=== PATIENT | male | born 1940 | race Caucasian/White ===

== ENCOUNTER 2017-09-01 22:52 | Inpatient (IN) | payer MEDICARE ==
[~2017-09-01] VITALS: Ht 182.9 cm; Wt 87.5 kg
[2017-09-01 23:23] LABS: BASOPHILS % (AUTO) 0.6 % (0.0-5.0); HEMATOCRIT 43.3 % (42-54); LYMPHOCYTES % (AUTO) 15.4 % (21.0-51.0); MEAN CORPUSCULAR HEMOGLOBIN 32.5 pg (27.0-33.0); MEAN CORPUSCULAR HGB CONC 34.7 g/dL (32.0-36.0); MEAN CORPUSCULAR VOLUME 93.7 fL (79-99); MONOCYTES % (AUTO) 13.6 % (3.0-13.0); NEUTROPHILS % (AUTO) 69.4 % (40.0-77.0); PLATELET COUNT (AUTO) 245 K/uL (130-400); RED BLOOD CELL COUNT(AUTO) 4.62 MIL/uL (4.50-6.20); RED CELL DISTRIBUTION WIDTH 13.6 % (11.0-15.5); WHITE BLOOD COUNT (AUTO) 7.6 K/uL (4.8-10.8)
[2017-09-01 23:29] LABS: CREATININE 2.8 mg/dL (0.5-1.5); POTASSIUM 4.3 mmol/L (3.5-5.1)
[2017-09-01 23:32] LABS: ALBUMIN 3.6 g/dL (3.5-5.0); BILIRUBIN,TOTAL 0.9 mg/dL (0.2-1.0); TOTAL PROTEIN, SERUM 7.7 g/dL (6.0-8.3)
[2017-09-01 23:35] LABS: INR 3.29 (0.85-1.15); PROTHROMBIN TIME 32.8 SEC (9.6-11.6)
[2017-09-01 23:36] LABS: PARTIAL THROMBOPLASTIN TIME 39.4 SEC (26.3-35.5)
[2017-09-01] MEDS ORDERED: METHYLPREDNISOLONE SOD SUCC 125MG/2ML VIAL ONE (23:45)
[2017-09-01] MEDS ORDERED: IPRATROPIUM/ALBUTEROL SULFATE 3 ML SOLUTION IH ONE (23:51)
[2017-09-02] MEDS ORDERED: IPRATROPIUM/ALBUTEROL SULFATE 3 ML SOLUTION IH ONE ×2 (00:43→05:43)
[2017-09-02] MEDS ORDERED: AZITHROMYCIN 500MG+NS 250ML 250 ML IV ONE (01:34)
[2017-09-02] MEDS ORDERED: FUROSEMIDE 10 MG/ML 4ML VIAL ONE (01:34)
[2017-09-02] MEDS ORDERED: CEFTRIAXONE SODIUM 1 GM ONE (01:35)
[2017-09-02] MEDS ORDERED: POTASSIUM CHLORIDE 20 MEQ ERTAB PO PRN (02:15)
[2017-09-02] MEDS ORDERED: ACETAMINOPHEN 325 MG TAB PO PRN (02:15)
[2017-09-02] MEDS ORDERED: POTASSIUM CHLORIDE 10% ELIXIR 20 MEQ/15 ML UDCUP PO PRN (02:15)
[2017-09-02] MEDS ORDERED: ONDANSETRON HCL MDV 20ML 2 MG/ML VIAL IVP PRN (02:15)
[2017-09-02] MEDS ORDERED: LIDOCAINE HCL-MPF 1% 2ML VIAL IVP PRN (02:15)
[2017-09-02] MEDS ORDERED: POTASSIUM CHLORIDE 20MEQ/100ML 100 ML IV PRN (02:15)
[2017-09-02] MEDS ORDERED: FAMOTIDINE 20MG TAB 20 MG TAB PO SCH (03:15)
[2017-09-02] MEDS: IPRATROPIUM/ALBUTEROL SULFATE 3 ML SOLUTION IH SCH ×3 (05:44→18:39)
[2017-09-02] MEDS ORDERED: PHYTONADIONE 10 MG/1 ML AMP SQ SCH (06:00)
[2017-09-02] MEDS ORDERED: PHYTONADIONE 10 MG/1 ML AMP ONE (06:05)
[2017-09-02] MEDS ORDERED: FAMOTIDINE 20MG TAB 20 MG TAB ONE (06:05)
[2017-09-02 08:01] LABS: BASOPHILS % (AUTO) 0.2 % (0.0-5.0); EOSINOPHILS % (AUTO) 0.1 % (0.0-8.0); HEMATOCRIT 40.7 % (42-54); LYMPHOCYTES % (AUTO) 7.6 % (21.0-51.0); MEAN CORPUSCULAR HEMOGLOBIN 32.2 pg (27.0-33.0); MEAN CORPUSCULAR HGB CONC 34.5 g/dL (32.0-36.0); MEAN CORPUSCULAR VOLUME 93.6 fL (79-99); MONOCYTES % (AUTO) 3.1 % (3.0-13.0); PLATELET COUNT (AUTO) 204 K/uL (130-400); RED BLOOD CELL COUNT(AUTO) 4.35 MIL/uL (4.50-6.20); WHITE BLOOD COUNT (AUTO) 4.4 K/uL (4.8-10.8)
[2017-09-02 08:10] LABS: CREATININE 2.6 mg/dL (0.5-1.5); POTASSIUM 4.3 mmol/L (3.5-5.1)
[2017-09-02 08:37] LABS: B-TYPE NATRIURETIC PEPTIDE 1160 pg/mL (0-100)
[2017-09-02 08:53] LABS: INR 3.54 (0.85-1.15); PROTHROMBIN TIME 35.1 SEC (9.6-11.6)
[2017-09-02] MEDS ORDERED: METOLAZONE 2.5 MG TABLET PO SCH (09:30)
[2017-09-02] MEDS ORDERED: METOLAZONE 2.5 MG TABLET ONE (10:06)
[2017-09-02 10:12] LABS: APPEARANCE,URINE Clear (CLEAR); BILIRUBIN,URINE Negative (NEGATIVE); COLOR,URINE Yellow (YELLOW); GLUCOSE, URINE (UA) Negative (NEGATIVE); KETONES,URINE Negative (NEGATIVE); LEUKOCYTE ESTERASE ,URINE Small (NEGATIVE); NITRATE,URINE Negative (NEGATIVE); OCCULT BLOOD,URINE Negative (NEGATIVE); PROTEIN,URINE Negative (NEGATIVE)
[2017-09-02 10:26] LABS: BACTERIA,URINE Rare /HPF (None Seen); RBC,URINE 0-1 /HPF (0-1); SQUAMOUS EPITHELIAL CELL,UR Rare /HPF (0-2)
[2017-09-02 11:00] VITALS: BP 114/70
[2017-09-02] MEDS ORDERED: FLUT1AER IH (11:38)
[2017-09-02] MEDS ORDERED: SPIR25TA6 PO (11:38)
[2017-09-02] MEDS ORDERED: CARV3.12 PO (11:38)
[2017-09-02] MEDS ORDERED: FURO80TA3 PO (11:38)
[2017-09-02] MEDS ORDERED: PRAV40TA3 PO (11:38)
[2017-09-02] MEDS ORDERED: AMIO100T4 PO (11:38)
[2017-09-02] MEDS ORDERED: WARF-57 PO (11:38)
[2017-09-02] MEDS ORDERED: RANI150T7 PO (11:38)
[2017-09-02] MEDS ORDERED: LEVO200T10 PO (11:38)
[2017-09-02] MEDS: FUROSEMIDE 10 MG/ML 4ML VIAL IV SCH ×2 (12:58→23:51)
[2017-09-02 16:00] VITALS: BP 104/61
[2017-09-02] MEDS: ALBUTEROL SULFATE 0.083% 2.5 MG/3 ML INH IH SCH (18:00)
[2017-09-02] MEDS: BUDESONIDE 0.5 MG/2 ML INH IH SCH (18:46)
[2017-09-02 19:36] VITALS: BP 103/54
[2017-09-02] MEDS: CARVEDILOL 3.125 MG TABLET PO SCH (21:06)
[2017-09-02] MEDS: AMIODARONE HCL 200 MG TABLET PO SCH (21:06)
[2017-09-02 23:44] VITALS: BP 104/61
[2017-09-03] MEDS: ALBUTEROL SULFATE 0.083% 2.5 MG/3 ML INH IH SCH
[2017-09-03] MEDS: IPRATROPIUM/ALBUTEROL SULFATE 3 ML SOLUTION IH SCH ×4 (00:13→18:57)
[2017-09-03 04:04] LABS: HEMATOCRIT 40.1 % (42-54); MEAN CORPUSCULAR HEMOGLOBIN 32.9 pg (27.0-33.0); MEAN CORPUSCULAR HGB CONC 35.3 g/dL (32.0-36.0); MEAN CORPUSCULAR VOLUME 93.3 fL (79-99); PLATELET COUNT (AUTO) 257 K/uL (130-400); RED CELL DISTRIBUTION WIDTH 13.8 % (11.0-15.5); WHITE BLOOD COUNT (AUTO) 7.9 K/uL (4.8-10.8)
[2017-09-03 04:12] LABS: INR 2.73 (0.85-1.15); PROTHROMBIN TIME 27.3 SEC (9.6-11.6)
[2017-09-03 04:16] VITALS: BP 101/67
[2017-09-03 04:16] LABS: CREATININE 2.6 mg/dL (0.5-1.5); MAGNESIUM 2.4 mg/dL (1.80-2.40); POTASSIUM 4.1 mmol/L (3.5-5.1)
[2017-09-03 04:26] LABS: BAND NEUTROPHILS % (MANUAL) 5 % (0-2); BASOPHILS % (MANUAL) 1 % (0-2); EOSINOPHILS % (MANUAL) 1 % (1-6); LYMPHOCYTES % (MANUAL) 10 % (22-44); MONOCYTES % (MANUAL) 3 % (2-9); SEGMENTED NEUTROPHILS % 80 % (40-70)
[2017-09-03 04:27] LABS: MAN.DIFF COMMENT-IMPRESSION MANUAL DIFFERENTIAL; PLATELET MORPHOLOGY COMMENT ADEQUATE
[2017-09-03] MEDS: BUDESONIDE 0.5 MG/2 ML INH IH SCH ×2 (06:31→18:57)
[2017-09-03 07:49] VITALS: BP 107/70
[2017-09-03] MEDS ORDERED: WARFARIN SODIUM 2 MG TAB PO SCH (09:00)
[2017-09-03] MEDS: **HM** PRAVASTATIN 40MG PO SCH (09:00)
[2017-09-03] MEDS ORDERED: CEFTRIAXONE 1GM/D5W 50ML 50 ML IV SCH (09:00)
[2017-09-03] MEDS: LEVOTHYROXINE 100 MCG TABLET PO SCH (09:48)
[2017-09-03] MEDS: SPIRONOLACTONE 25 MG TAB PO SCH (09:48)
[2017-09-03] MEDS: CEFTRIAXONE SODIUM 1 GM IVP SCH (09:49)
[2017-09-03] MEDS: AMIODARONE HCL 200 MG TABLET PO SCH ×2 (09:49→21:16)
[2017-09-03] MEDS: CARVEDILOL 3.125 MG TABLET PO SCH ×2 (09:49→21:17)
[2017-09-03] MEDS: AZITHROMYCIN 500MG+NS 250ML 250 ML IV SCH (09:50)
[2017-09-03] MEDS: FUROSEMIDE 10 MG/ML 4ML VIAL IV SCH (09:51)
[2017-09-03 11:23] VITALS: BP 121/73
[2017-09-03] MEDS ORDERED: WARFARIN SODIUM 1 MG TAB PO SCH (16:00)
[2017-09-03 16:12] VITALS: BP 105/70
[2017-09-03 19:54] VITALS: BP 112/64
[2017-09-03 23:37] VITALS: BP 100/63
[2017-09-04] MEDS: IPRATROPIUM/ALBUTEROL SULFATE 3 ML SOLUTION IH SCH ×3 (00:35→11:50)
[2017-09-04 04:34] VITALS: BP 108/58
[2017-09-04 04:34] LABS: BASOPHILS % (AUTO) 0.3 % (0.0-5.0); EOSINOPHILS % (AUTO) 0.8 % (0.0-8.0); HEMATOCRIT 40.6 % (42-54); LYMPHOCYTES % (AUTO) 13.5 % (21.0-51.0); MEAN CORPUSCULAR HEMOGLOBIN 32.3 pg (27.0-33.0); MEAN CORPUSCULAR HGB CONC 34.5 g/dL (32.0-36.0); MEAN CORPUSCULAR VOLUME 93.7 fL (79-99); MONOCYTES % (AUTO) 10.1 % (3.0-13.0); NEUTROPHILS % (AUTO) 75.3 % (40.0-77.0); PLATELET COUNT (AUTO) 238 K/uL (130-400); RED BLOOD CELL COUNT(AUTO) 4.33 MIL/uL (4.50-6.20); WHITE BLOOD COUNT (AUTO) 7.2 K/uL (4.8-10.8)
[2017-09-04 04:49] LABS: CREATININE 2.6 mg/dL (0.5-1.5); POTASSIUM 3.8 mmol/L (3.5-5.1)
[2017-09-04] MEDS: ALBUTEROL SULFATE 0.083% 2.5 MG/3 ML INH IH SCH ×3 (06:00→11:50)
[2017-09-04] MEDS: BUDESONIDE 0.5 MG/2 ML INH IH SCH (06:20)
[2017-09-04 07:00] VITALS: BP 111/66
[2017-09-04] MEDS: CEFTRIAXONE SODIUM 1 GM IVP SCH (08:51)
[2017-09-04] MEDS: FUROSEMIDE 10 MG/ML 4ML VIAL IV SCH (08:51)
[2017-09-04] MEDS: LEVOTHYROXINE 100 MCG TABLET PO SCH (08:51)
[2017-09-04] MEDS: AMIODARONE HCL 200 MG TABLET PO SCH (08:51)
[2017-09-04] MEDS: CARVEDILOL 3.125 MG TABLET PO SCH (08:52)
[2017-09-04] MEDS: SPIRONOLACTONE 25 MG TAB PO SCH (08:52)
[2017-09-04] MEDS: AZITHROMYCIN 500MG+NS 250ML 250 ML IV SCH (08:54)
[2017-09-04] MEDS: **HM** PRAVASTATIN 40MG PO SCH (08:55)
[2017-09-04] MEDS ORDERED: WARFARIN SODIUM 2.5 MG TAB PO SCH (09:00)
[2017-09-04 11:00] VITALS: BP 95/58
[2017-09-04] MEDS ORDERED: WARF2.5T47 PO (12:13)
[2017-09-04] MEDS ORDERED: CEPH500B PO (12:13)
[2017-09-04] MEDS ORDERED: FURO40TA7 PO (12:13)
[2017-09-04] MEDS ORDERED: AZIT250T9 PO (12:13)
[2017-09-04] MEDS ORDERED: FUROSEMIDE 40 MG TABLET PO SCH (17:00)
== END 2017-09-04 13:10 | disposition home or self-care (01) | DRG 291 ==
LOC: EDH 22:52 → EDHIP 09-02 01:13 → 2BH 09-02 11:04 → 2AH 09-02 17:24
PROVIDERS: ADMIT Family Medicine; ATTEND Family Medicine
DX: I13.0 Hypertensive heart and chronic kidney disease with heart failure and stage 1 through stage 4 chronic kidney disease, or unspecified chronic kidney disease (principal); I50.23 Acute on chronic systolic (congestive) heart failure; N17.9 Acute kidney failure, unspecified; N18.4 Chronic kidney disease, stage 4 (severe); I25.5 Ischemic cardiomyopathy; J44.0 Chronic obstructive pulmonary disease with (acute) lower respiratory infection; I48.0 Paroxysmal atrial fibrillation; Z79.01 Long term (current) use of anticoagulants; I25.10 Atherosclerotic heart disease of native coronary artery without angina pectoris; J44.1 Chronic obstructive pulmonary disease with (acute) exacerbation; B97.89 Other viral agents as the cause of diseases classified elsewhere; E03.9 Hypothyroidism, unspecified; E78.5 Hyperlipidemia, unspecified; I25.2 Old myocardial infarction; I48.2 Chronic atrial fibrillation; J20.9 Acute bronchitis, unspecified; R79.1 Abnormal coagulation profile; Z86.79 Personal history of other diseases of the circulatory system; Z87.891 Personal history of nicotine dependence; Z95.1 Presence of aortocoronary bypass graft; Z95.810 Presence of automatic (implantable) cardiac defibrillator; Z88.8 Allergy status to other drugs, medicaments and biological substances; Z84.89 Family history of other specified conditions
CPT/HCPCS: 36415; 71045; 76770; 80048; 80053; 81001; 82550; 83735; 83880; 84484; 85025; 85610; 85730; 87040; 87633; 93005; 93306; 94640; 94664; 99291; A4218; J0456; J0696; J1940; J2930; J3430

== ENCOUNTER 2018-07-31 08:59 | Emergency (ER) | payer MEDICARE ==
[~2018-07-31 08:59] MED LIST: AMIO100T4 PO; AZIT250T9 PO; CARV3.12 PO; CEPH500B PO; FLUT1AER IH; FURO40TA7 PO; LEVO200T10 PO; PRAV40TA3 PO; RANI150T7 PO; SPIR25TA6 PO; WARF2.5T47 PO
[2018-07-31 10:02] LABS: APPEARANCE,URINE Clear (CLEAR); BILIRUBIN,URINE Negative (NEGATIVE); COLOR,URINE Yellow (YELLOW); GLUCOSE, URINE (UA) Negative (NEGATIVE); KETONES,URINE Negative (NEGATIVE); LEUKOCYTE ESTERASE ,URINE Small (NEGATIVE); NITRATE,URINE Negative (NEGATIVE); OCCULT BLOOD,URINE Negative (NEGATIVE); PROTEIN,URINE Negative (NEGATIVE)
[2018-07-31] MEDS ORDERED: ONDANSETRON HCL 4 MG/2 ML VIAL ONE (10:06)
[2018-07-31] MEDS ORDERED: MORPHINE SULFATE 4 MG/1ML SYG ONE (10:07)
[2018-07-31 10:49] LABS: BASOPHILS % (AUTO) 0.8 % (0.0-5.0); EOSINOPHILS % (AUTO) 3.6 % (0.0-8.0); HEMATOCRIT 39.6 % (42-54); LYMPHOCYTES % (AUTO) 18.3 % (21.0-51.0); MEAN CORPUSCULAR HEMOGLOBIN 33.2 pg (27.0-33.0); MEAN CORPUSCULAR HGB CONC 34.4 g/dL (32.0-36.0); MEAN CORPUSCULAR VOLUME 96.4 fL (79-99); MONOCYTES % (AUTO) 10.7 % (3.0-13.0); NEUTROPHILS % (AUTO) 66.6 % (40.0-77.0); NUCLEATED RED BLOOD CELLS 0.1 % (0.0-0.19); PLATELET COUNT (AUTO) 157 K/uL (130-400); RED BLOOD CELL COUNT(AUTO) 4.11 MIL/uL (4.50-6.20); RED CELL DISTRIBUTION WIDTH 13.5 % (11.0-15.5); WHITE BLOOD COUNT (AUTO) 5.1 K/uL (4.8-10.8)
[2018-07-31 11:00] LABS: POTASSIUM 4.1 mmol/L (3.5-5.1)
[2018-07-31 11:05] LABS: ALBUMIN 3.3 g/dL (3.5-5.0); BILIRUBIN,TOTAL 0.6 mg/dL (0.2-1.0); TOTAL PROTEIN, SERUM 6.4 g/dL (6.0-8.3)
[2018-07-31 11:09] LABS: BACTERIA,URINE Few /HPF (None Seen); SQUAMOUS EPITHELIAL CELL,UR 0-2 /HPF (0-2)
[2018-07-31 11:10] LABS: RBC,URINE 0-1 /HPF (0-1)
[2018-07-31] MEDS ORDERED: MORPHINE SULFATE 5 MG/ML VIAL ONE (11:38)
== END 2018-07-31 13:14 | disposition home or self-care (01) ==
LOC: EDH 08:59
DX: N18.9 Chronic kidney disease, unspecified (principal); N28.1 Cyst of kidney, acquired; I48.91 Unspecified atrial fibrillation; E07.9 Disorder of thyroid, unspecified; E78.5 Hyperlipidemia, unspecified; Z95.1 Presence of aortocoronary bypass graft
CPT/HCPCS: 36415; 74176; 76705; 80053; 81001; 85025; 96374; 96375; 96376; 99285; J2270 ×2; J2405

== ENCOUNTER → 2019-06-13 | Outpatient (CLI) | payer MEDICARE | END | disposition home or self-care (01) | LOC: OIH 14:54 | PROVIDERS: ATTEND Internal Medicine | DX: M54.5 Low back pain (principal) | CPT/HCPCS: 72100 ==

== ENCOUNTER → 2019-06-21 | Outpatient (CLI) | payer MEDICARE | END | disposition home or self-care (01) | LOC: RAH 12:51 | PROVIDERS: ATTEND Internal Medicine | DX: J43.8 Other emphysema (principal); J98.11 Atelectasis; K76.89 Other specified diseases of liver; N28.1 Cyst of kidney, acquired; K57.90 Diverticulosis of intestine, part unspecified, without perforation or abscess without bleeding; K80.20 Calculus of gallbladder without cholecystitis without obstruction; I70.0 Atherosclerosis of aorta | CPT/HCPCS: 74176 ==

== ENCOUNTER 2019-08-14 23:39 | Inpatient (IN) | payer MEDICARE ==
[~2019-08-14] VITALS: Ht 182.9 cm; Wt 73.5 kg
[~2019-08-14 23:39] MED LIST changes: +WARF2.5T PO; -WARF2.5T47 PO
[2019-08-15 00:27] LABS: BASOPHILS % (AUTO) 0.3 % (0.0-5.0); EOSINOPHILS % (AUTO) 1.2 % (0.0-8.0); HEMATOCRIT 46.5 % (42-54); LYMPHOCYTES % (AUTO) 8.3 % (21.0-51.0); MEAN CORPUSCULAR HEMOGLOBIN 28.2 pg (27.0-33.0); MEAN CORPUSCULAR HGB CONC 32.5 g/dL (32.0-36.0); MEAN CORPUSCULAR VOLUME 86.9 fL (79-99); MONOCYTES % (AUTO) 10.5 % (3.0-13.0); NEUTROPHILS % (AUTO) 79.4 % (40.0-77.0); PLATELET COUNT (AUTO) 168 K/uL (130-400); RED BLOOD CELL COUNT(AUTO) 5.35 MIL/uL (4.50-6.20); RED CELL DISTRIBUTION WIDTH 17.9 % (11.0-15.5); WHITE BLOOD COUNT (AUTO) 7.6 K/uL (4.8-10.8)
[2019-08-15 00:45] LABS: CREATININE 2.8 mg/dL (0.5-1.5); INR 1.05 (0.85-1.15); PARTIAL THROMBOPLASTIN TIME 26.1 SEC (26.3-35.5); POTASSIUM 4.1 mmol/L (3.5-5.1); PROTHROMBIN TIME 11.3 SEC (9.6-11.6)
[2019-08-15 00:49] LABS: ALBUMIN 4.8 g/dL (3.5-5.0); BILIRUBIN,TOTAL 1.3 mg/dL (0.2-1.0); TOTAL PROTEIN, SERUM 8.5 g/dL (6.0-8.3)
[2019-08-15] MEDS ORDERED: ONDANSETRON HCL 4 MG/2 ML VIAL ONE (01:19)
[2019-08-15] MEDS ORDERED: MORPHINE SULFATE 4 MG/1ML SYG ONE (01:20)
[2019-08-15] MEDS ORDERED: SODIUM CHLORIDE 0.9% 1000ML 1,000 ML IV ONE (01:21)
[2019-08-15] MEDS ORDERED: DEXTROSE 5 %-0.45 % NACL 1,000 ML IV ONE (03:30)
--- NOTE | 2019-08-15 08:10 | NUR ---
ER ADMIT PATIENT RECEIVED FROM ER VIA STRETCHER IN STABLE CONDITION. DR. FANG IN TO SEE PATIENT. NEW ORDERS RECEIVED AND CARRIED OUT. PATIENT HAS BEEN ORIENTED TO ROOM AND USE OF CALL LIGHT. NGT TO RIGHT NARES IS INTACT AND CLAMPED. ABDOMEN IS SOFT AND SLIGHTLY DISTENDED. PATIENT REPORTS PASSING GAS. BOWEL SOUNDS ARE ACTIVE. BED IS IN LOWEST POSITION AND LOCKED WITH PERSONAL ITEMS WITHIN REACH. WILL CONTINUE TO MONITOR.
[2019-08-15 08:21] VITALS: BP 118/65
--- NOTE | 2019-08-15 09:08 | NUR ---
STATUS NOTIFIED DR. FANG OF ADMISSION CRITERIA. STATES TO ASK DR. LYLES FOR INPATIENT ORDERS. LEFT MESSAGE WITH DR. LYLES. PENDING RESPONSE. CM TO CONTINUE TO FOLLOW. CD
[2019-08-15] MEDS ORDERED: CEFTRIAXONE SODIUM 1 GM IVP ONE (09:36)
[2019-08-15] MEDS: CEFTRIAXONE SODIUM 1 GM IV SCH (09:36)
[2019-08-15] MEDS: MORPHINE SULFATE 2 MG/ML 1ML SYG IVP PRN ×2 (09:37→19:55)
[2019-08-15] MEDS: DEXTROSE 5 %-0.45 % NACL 1,000 ML IV SCH (09:41)
[2019-08-15 11:36] VITALS: BP 120/66
[2019-08-15] MEDS: ONDANSETRON HCL 4 MG/2 ML VIAL IVP PRN ×2 (11:45→20:06)
--- NOTE | 2019-08-15 11:59 | NUR ---
INITIAL CM NOTE MET WITH PATIENT & SPOUSE MOISÉS AT BEDSIDE FOR D/C PLANNING JOSEY JAY, INDEPENDENT, NO DME, DRIVES- HISTORY OF SBO AND COLON RESECTION IN THE PAST. CURRENTLY NPO. DCP PLAN IS HOME Addendum: 08/15/19 at 1202 by ELDER URENA RN CM Amended: Links added.
[2019-08-15] MEDS: METRONIDAZOLE 500MG/100ML BAG 100 ML IV SCH ×2 (14:00→22:26)
[2019-08-15 17:00] VITALS: BP 111/61
--- NOTE | 2019-08-15 17:25 | NUR ---
[id number] patient signed IM Letter, I faxed IM Letter to [phone] and placed in chart under consent tab
[2019-08-15 19:25] VITALS: BP 104/61
[2019-08-15] MEDS ORDERED: TORS20TA4 PO (20:01)
[2019-08-15] MEDS ORDERED: BISO5TAB19 PO (20:01)
[2019-08-15] MEDS ORDERED: CLOP75TA32 PO (20:01)
[2019-08-15] MEDS ORDERED: LISI2.5T2 PO (20:01)
[2019-08-15] MEDS ORDERED: AEC81 PO (20:01)
[2019-08-15] MEDS ORDERED: AMIO200T44 PO (20:01)
[2019-08-15 23:46] VITALS: BP 102/56
[2019-08-16] MEDS: DEXTROSE 5 %-0.45 % NACL 1,000 ML IV SCH (00:45)
[2019-08-16 03:52] VITALS: BP 101/58
[2019-08-16 05:03] LABS: HEMATOCRIT 47.6 % (42-54); MEAN CORPUSCULAR HEMOGLOBIN 28.3 pg (27.0-33.0); MEAN CORPUSCULAR HGB CONC 32.1 g/dL (32.0-36.0); MEAN CORPUSCULAR VOLUME 88.1 fL (79-99); PLATELET COUNT (AUTO) 152 K/uL (130-400); RED CELL DISTRIBUTION WIDTH 17.5 % (11.0-15.5); WHITE BLOOD COUNT (AUTO) 6.7 K/uL (4.8-10.8)
[2019-08-16 05:13] LABS: BAND NEUTROPHILS % (MANUAL) 2 % (0-2); LYMPHOCYTES % (MANUAL) 16 % (22-44); MAN.DIFF COMMENT-IMPRESSION MANUAL DIFFERENTIAL; MONOCYTES % (MANUAL) 10 % (2-9); PLATELET MORPHOLOGY COMMENT ADEQUATE; SEGMENTED NEUTROPHILS % 72 % (40-70)
[2019-08-16 05:14] LABS: CREATININE 2.4 mg/dL (0.5-1.5); POTASSIUM 3.9 mmol/L (3.5-5.1)
[2019-08-16] MEDS: METRONIDAZOLE 500MG/100ML BAG 100 ML IV SCH ×3 (06:21→20:41)
[2019-08-16] MEDS ORDERED: AUD IH (06:51)
[2019-08-16 08:00] VITALS: BP 114/64
[2019-08-16] MEDS: BISOPROLOL FUMARATE 2.5 MG PO SCH ×2 (09:00→20:48)
[2019-08-16] MEDS: ASPIRIN 81 MG EC TAB PO SCH (09:42)
[2019-08-16] MEDS: LISINOPRIL 2.5 MG TABLET PO SCH (09:42)
[2019-08-16] MEDS: SPIRONOLACTONE 25 MG TAB PO SCH (09:42)
[2019-08-16] MEDS: CLOPIDOGREL BISULFATE 75 MG TAB PO SCH (09:42)
[2019-08-16] MEDS: TORSEMIDE 20 MG TAB PO SCH (09:42)
[2019-08-16] MEDS: AMIODARONE HCL 200 MG TABLET PO SCH (09:43)
[2019-08-16] MEDS: MORPHINE SULFATE 2 MG/ML 1ML SYG IVP PRN ×2 (09:44→20:40)
[2019-08-16] MEDS: CEFTRIAXONE SODIUM 1 GM IV SCH (09:44)
[2019-08-16] MEDS ORDERED: CEFTRIAXONE SODIUM 1 GM IVP ONE (09:44)
--- NOTE | 2019-08-16 10:17 | NUR ---
VOMITING DARK GREEN EMESIS, CARMELO GRANGER NOTIFIED, COMFORT PROVIDED, NOTED THAT DR. LYLES ORDKARLEE STATES' ADVANCE DIET IF OK WITH SURGEON'' NO SURGICAL CONSULT IN SYSTEM, CONSULT PLACED AND YOGESH FOR DR. HUMMEL ADVISED CONTACTED DR. LYLES TO LET HIM KNOW OF UPDATES REQUEST FOR KUB NOW? NO RESPONSE
[2019-08-16 11:00] VITALS: BP 112/61
[2019-08-16] MEDS: ALBUTEROL SULFATE 0.083% 2.5 MG/3 ML INH IH PRN ×2 (11:14→18:20)
[2019-08-16 16:00] VITALS: BP 101/54
[2019-08-16 20:36] VITALS: BP 98/72
[2019-08-16] MEDS: ONDANSETRON HCL 4 MG/2 ML VIAL IVP PRN (20:40)
[2019-08-16] MEDS: SIMVASTATIN 20 MG TABLET PO SCH ×2 (20:41→20:48)
[2019-08-16 23:09] VITALS: BP 116/67
[2019-08-17 03:00] VITALS: BP 101/60
[2019-08-17 04:56] LABS: HEMATOCRIT 43.9 % (42-54); MEAN CORPUSCULAR HEMOGLOBIN 28.8 pg (27.0-33.0); MEAN CORPUSCULAR HGB CONC 32.6 g/dL (32.0-36.0); MEAN CORPUSCULAR VOLUME 88.5 fL (79-99); PLATELET COUNT (AUTO) 151 K/uL (130-400); RED BLOOD CELL COUNT(AUTO) 4.96 MIL/uL (4.50-6.20); RED CELL DISTRIBUTION WIDTH 17.4 % (11.0-15.5); WHITE BLOOD COUNT (AUTO) 5.7 K/uL (4.8-10.8)
[2019-08-17 05:22] LABS: CREATININE 2.9 mg/dL (0.5-1.5); POTASSIUM 3.8 mmol/L (3.5-5.1)
[2019-08-17] MEDS: ALBUTEROL SULFATE 0.083% 2.5 MG/3 ML INH IH PRN ×2 (06:11→19:01)
[2019-08-17] MEDS: LEVOTHYROXINE 100 MCG TABLET PO SCH (06:45)
[2019-08-17] MEDS: METRONIDAZOLE 500MG/100ML BAG 100 ML IV SCH ×3 (06:45→21:22)
[2019-08-17] MEDS: DEXTROSE 5 %-0.45 % NACL 1,000 ML IV SCH ×2 (06:46→16:45)
[2019-08-17] MEDS: ONDANSETRON HCL 4 MG/2 ML VIAL IVP PRN ×2 (07:39→21:22)
[2019-08-17] MEDS: MORPHINE SULFATE 2 MG/ML 1ML SYG IVP PRN ×2 (07:39→21:22)
[2019-08-17 08:00] VITALS: BP 87/51
[2019-08-17] MEDS: LISINOPRIL 2.5 MG TABLET PO SCH (09:00)
[2019-08-17] MEDS: ASPIRIN 81 MG EC TAB PO SCH (09:00)
[2019-08-17] MEDS: BISOPROLOL FUMARATE 2.5 MG PO SCH ×2 (09:00→21:00)
[2019-08-17] MEDS: AMIODARONE HCL 200 MG TABLET PO SCH (09:00)
[2019-08-17] MEDS: SPIRONOLACTONE 25 MG TAB PO SCH (09:00)
[2019-08-17] MEDS: CLOPIDOGREL BISULFATE 75 MG TAB PO SCH (09:00)
[2019-08-17] MEDS: TORSEMIDE 20 MG TAB PO SCH (09:00)
[2019-08-17] MEDS: CEFTRIAXONE SODIUM 1 GM IV SCH (09:33)
[2019-08-17] MEDS ORDERED: CEFTRIAXONE SODIUM 1 GM IVP ONE (09:35)
[2019-08-17 11:00] VITALS: BP 111/61
[2019-08-17 16:00] VITALS: BP 122/71
--- NOTE | 2019-08-17 16:57 | NUR ---
STILL W NGT NGT CLMAPED AND PT UP AMBULATING EARLIER TODAY FAMILY HAD++ QUESTIONS RE BOWEL OBSTRUCTION ETC. WHEN PATIENT BACK TO SOFT DIET PRIOR TO DC, WILL PLACE DIET CONSULT FOR HX BOWL OBSTRUCTION/DIVERTICULOSIS
[2019-08-17 20:28] VITALS: BP 109/68
--- NOTE | 2019-08-17 20:52 | NUR ---
NOTE HEARD A NOISE COMING FROM ROOM AND ENTERED IT. FOUND PATIENT ON HIS KNEES OUTSIDE OF THE BATHROOM. HE WAS TAKING A SHOWER AND STATES THAT HE WAS WALKING OUT AND SLIPPED ON THE WET FLOOR. ASSISTED HIM TO THE NEARBY CHAIR. TO DRY FEET AND PLACE HIS SOCKS ON. SAYS HE IS SORE FROM THE RIGHT KNEE. NOTED A BRUISE FORMING. SLIGHT REDNESS ON LEFT KNEE. DENIES ANY PAIN. HAD THE EXTENSION TUBING FOR THE OXYGEN, BUT HE SAYS HE DID NOT TRIP ON IT. ASSISTED HIM TO THE BED. TOOK VITAL SIGNS BP 118/68, P 74, RR20. CONTACTED LUCILA JEFFRES RNPHOTOCOPYING EQUIPMENT REPAIRER AND THEN PAGED DR. LYLES TO NOTIFY OF INCIDENT.
[2019-08-17] MEDS: SIMVASTATIN 20 MG TABLET PO SCH (21:00)
--- NOTE | 2019-08-17 22:07 | NUR ---
NOTE RECEIVED CALL BACK FROM DR. LYLES. NOTIFIED OF FALL AND BRUISE ON RIGHT KNEE. LEFT KNEE WITH NO APPEARANCE INJURY AND PATIENT DENIES PAIN. ONLY SORENESS ON RIGHT KNEE. DR. LYLES SAID TO JUST OBSERVE. NO ORDERS FOR XRAYS AT THIS TIME. UPDATED Ramila JEFFERS RN OF CALL BACK FROM
[2019-08-18 00:28] VITALS: BP 115/68
[2019-08-18] MEDS: METRONIDAZOLE 500MG/100ML BAG 100 ML IV SCH ×3 (04:27→21:23)
[2019-08-18 04:28] VITALS: BP 105/68
[2019-08-18] MEDS: LEVOTHYROXINE 100 MCG TABLET PO SCH (04:50)
[2019-08-18] MEDS: ALBUTEROL SULFATE 0.083% 2.5 MG/3 ML INH IH PRN ×2 (06:59→18:38)
--- NOTE | 2019-08-18 07:12 | NUR ---
MD ROUNDS DR. LYLES HERE TO SEE PATIENT. NOTIFIED OF NGT OUTPUT OF THE NIGHT IS THE AMOUNT THAT IS ON TUBING. NO DRAINAGE GOT TO DRAINAGE CANISTER. 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 DENIES PAIN AT THIS TIME. DR. LYLES SAYS HE CAN HAVE THE NGT CLAMPED AND START ON CLEAR LIQUIDS. HAVE PATIENT WALK AND IF HE DOES NOT HAVE A BM LATER TODAY, HE CAN HAVE AND ENEMA. POINTED OUT THE BRUISE ON RIGHT KNEE FROM FALL LAST NIGHT, BUT PATIENT SAYS THAT IS JUST SORE AND DOES NOT BOTHER HIM.
[2019-08-18 07:30] VITALS: BP 111/59
[2019-08-18] MEDS: BISOPROLOL FUMARATE 2.5 MG PO SCH ×2 (09:00→19:40)
[2019-08-18] MEDS: LISINOPRIL 2.5 MG TABLET PO SCH (09:00)
[2019-08-18] MEDS ORDERED: CEFTRIAXONE SODIUM 1 GM IVP ONE (09:12)
[2019-08-18] MEDS: CEFTRIAXONE SODIUM 1 GM IV SCH (09:12)
[2019-08-18] MEDS: CLOPIDOGREL BISULFATE 75 MG TAB PO SCH (09:13)
[2019-08-18] MEDS: ASPIRIN 81 MG EC TAB PO SCH (09:13)
[2019-08-18] MEDS: SPIRONOLACTONE 25 MG TAB PO SCH (09:13)
[2019-08-18] MEDS: TORSEMIDE 20 MG TAB PO SCH (09:13)
[2019-08-18] MEDS: AMIODARONE HCL 200 MG TABLET PO SCH (09:13)
[2019-08-18] MEDS ORDERED: PHARMACY COMMUNICATION MISC SCH (09:30)
[2019-08-18 11:00] VITALS: BP 108/53
[2019-08-18] MEDS: DEXTROSE 5 %-0.45 % NACL 1,000 ML IV SCH (11:42)
[2019-08-18] MEDS: ONDANSETRON HCL 4 MG/2 ML VIAL IVP PRN ×2 (13:21→23:31)
[2019-08-18] MEDS: MORPHINE SULFATE 2 MG/ML 1ML SYG IVP PRN ×2 (13:21→23:31)
--- NOTE | 2019-08-18 13:25 | NUR ---
PATIENT VOMITED 500CC GREEN BILE, COMPLAINING OF LOWER ABDOMINAL PAIN/ NAUSEA. RECONNECTED NGT TO LOW INTERMITTENT SUCTION. PLACED BACK ON NPO STATUS. MEDICATED FOR PAIN
--- NOTE | 2019-08-18 13:30 | NUR ---
SPOKE WITH YOGESH DUBOIS REGARDING PATIENTS CHANGE OF CONDITION. MADE AWARE PATIENT C/O LOWER ABDOMINAL PAIN, EMESIS X 1 500CC GREEN BILE. MADE AWARE PATIENT PLACED BACK ON NPO, NEW ORDER STAT KUB, KEEP PATIENT ON LOW INTERMITTENT SUCTION
--- NOTE | 2019-08-18 13:34 | NUR ---
CREATININE NOTES TO BE RISING CHART REVIEWED, CRET 3.0 ON 07/31 NOW [address] LYLES - POSS INCREASE IN IVF? AWAITING RESPONSE Addendum: 08/18/19 at 1337 by ELDER URENA RN CM ERROR IN VALUES, CORRECTIONS MADE
--- NOTE | 2019-08-18 13:36 | NUR ---
CREATININE NOTED TO BE RISING- CORRECTION THIS AND PREVIOUS CHART REVIEWED, CREA 2.0 ON 07/31 NOW 2.9 ON 08/[address] LYLES - POSS INCREASE IN IVF? AWAITING RESPONSE
[2019-08-18 16:00] VITALS: BP 116/65
[2019-08-18] MEDS: SIMVASTATIN 20 MG TABLET PO SCH (19:40)
[2019-08-18 20:28] VITALS: BP 99/52
[2019-08-19] VITALS (7 sets, daily range): BP systolic 98–115; BP diastolic 54–69
[2019-08-19 04:47] LABS: HEMATOCRIT 47.1 % (42-54); MEAN CORPUSCULAR HEMOGLOBIN 29.3 pg (27.0-33.0); MEAN CORPUSCULAR HGB CONC 32.7 g/dL (32.0-36.0); MEAN CORPUSCULAR VOLUME 89.7 fL (79-99); PLATELET COUNT (AUTO) 166 K/uL (130-400); RED BLOOD CELL COUNT(AUTO) 5.25 MIL/uL (4.50-6.20); RED CELL DISTRIBUTION WIDTH 17.5 % (11.0-15.5); WHITE BLOOD COUNT (AUTO) 5.6 K/uL (4.8-10.8)
[2019-08-19 05:11] LABS: ALBUMIN 4.2 g/dL (3.5-5.0); BILIRUBIN,TOTAL 0.8 mg/dL (0.2-1.0); CREATININE 2.6 mg/dL (0.5-1.5); POTASSIUM 3.6 mmol/L (3.5-5.1)
[2019-08-19] MEDS: LEVOTHYROXINE 100 MCG TABLET PO SCH (06:30)
[2019-08-19] MEDS: METRONIDAZOLE 500MG/100ML BAG 100 ML IV SCH ×3 (06:50→21:37)
[2019-08-19] MEDS: DEXTROSE 5 %-0.45 % NACL 1,000 ML IV SCH ×2 (06:50→16:24)
[2019-08-19 07:35] LABS: INR 1.12 (0.85-1.15); PARTIAL THROMBOPLASTIN TIME 26.1 SEC (26.3-35.5)
[2019-08-19] MEDS: LISINOPRIL 2.5 MG TABLET PO SCH (09:00)
[2019-08-19] MEDS: ASPIRIN 81 MG EC TAB PO SCH (09:00)
[2019-08-19] MEDS: CLOPIDOGREL BISULFATE 75 MG TAB PO SCH (09:00)
[2019-08-19] MEDS: BISOPROLOL FUMARATE 2.5 MG PO SCH ×2 (09:00→21:00)
[2019-08-19] MEDS: SPIRONOLACTONE 25 MG TAB PO SCH (09:00)
[2019-08-19] MEDS: AMIODARONE HCL 200 MG TABLET PO SCH (09:00)
[2019-08-19] MEDS: TORSEMIDE 20 MG TAB PO SCH (09:00)
--- NOTE | 2019-08-19 11:17 | NUR ---
TPN RECOMMENDATIONS RD CONSULTED FOR TPN RECOMMENDATIONS. DX SBO AND RENAL FAILURE. PT NOT ON DIALYSIS AT THIS TIME. LABS AND MEDS REVIEWED. SKIN IS INTACT. RD RECOMMENDS TO START TPN VIA PICC USING CLINIMIX 5/15 AT 42ML/HR ADD 10ML MULTIVITAMINS DO NOT ADD INTRALIPIDS UNTIL REVIEW OF LIPID PANEL RD RECOMMENDS TO RUN LIPID PANEL FOR REVIEW MONITOR LABS AND TOLERANCE RD WILL CONTINUE TO MONITOR AND FOLLOW UP, THANK YOU. Addendum: 08/19/19 at [address] Amended: Links added.
[2019-08-19] MEDS: CEFTRIAXONE SODIUM 1 GM IV SCH (16:24)
--- NOTE | 2019-08-19 17:09 | NUR ---
FLUSHED NGT, AND IS NOW PATENT WITH AIR, GURGLING SOUND HEARD AFTER SEVERAL ATTEMPTS TO UNCLOG. NOW PATENT DRAINING.
[2019-08-19] MEDS ORDERED: M.V.I. IV [ADULT] 10 ML in CLINIMIX E 5%-15% 2,000 ML IV SCH (20:15)
[2019-08-19] MEDS: SIMVASTATIN 20 MG TABLET PO SCH (21:00)
[2019-08-19] MEDS: MORPHINE SULFATE 2 MG/ML 1ML SYG IVP PRN (23:55)
[2019-08-19] MEDS: ONDANSETRON HCL 4 MG/2 ML VIAL IVP PRN (23:55)
[2019-08-20 04:00] VITALS: BP 104/43
[2019-08-20] MEDS: MORPHINE SULFATE 2 MG/ML 1ML SYG IVP PRN (04:18)
[2019-08-20] MEDS: METRONIDAZOLE 500MG/100ML BAG 100 ML IV SCH ×3 (05:33→21:22)
[2019-08-20] MEDS: LEVOTHYROXINE 100 MCG TABLET PO SCH (05:33)
[2019-08-20 05:54] LABS: HEMATOCRIT 43.2 % (42-54); MEAN CORPUSCULAR HEMOGLOBIN 28.8 pg (27.0-33.0); MEAN CORPUSCULAR HGB CONC 32.2 g/dL (32.0-36.0); MEAN CORPUSCULAR VOLUME 89.6 fL (79-99); PLATELET COUNT (AUTO) 151 K/uL (130-400); RED BLOOD CELL COUNT(AUTO) 4.82 MIL/uL (4.50-6.20); RED CELL DISTRIBUTION WIDTH 17.2 % (11.0-15.5); WHITE BLOOD COUNT (AUTO) 4.8 K/uL (4.8-10.8)
[2019-08-20 06:19] LABS: ALBUMIN 3.6 g/dL (3.5-5.0); BILIRUBIN,TOTAL 0.6 mg/dL (0.2-1.0); CREATININE 2.1 mg/dL (0.5-1.5); POTASSIUM 3.5 mmol/L (3.5-5.1); TOTAL PROTEIN, SERUM 7.2 g/dL (6.0-8.3)
[2019-08-20] MEDS ORDERED: POTASSIUM CHLORIDE 20 MEQ ERTAB PO PRN (06:45)
[2019-08-20] MEDS ORDERED: LIDOCAINE HCL-MPF 1% 2ML VIAL IV PRN ×2 (06:45)
[2019-08-20] MEDS ORDERED: POTASSIUM CHLORIDE 20MEQ/100ML 100 ML IV PRN (06:45)
[2019-08-20] MEDS ORDERED: POTASSIUM CHLORIDE 10% ELIXIR 20 MEQ/15 ML UDCUP PO PRN (06:45)
[2019-08-20 08:00] VITALS: BP 112/64
[2019-08-20] MEDS: ASPIRIN 81 MG EC TAB PO SCH (09:00)
[2019-08-20] MEDS: CLOPIDOGREL BISULFATE 75 MG TAB PO SCH (09:00)
[2019-08-20] MEDS: SPIRONOLACTONE 25 MG TAB PO SCH (09:00)
[2019-08-20] MEDS: LISINOPRIL 2.5 MG TABLET PO SCH (09:00)
[2019-08-20] MEDS: AMIODARONE HCL 200 MG TABLET PO SCH (09:00)
[2019-08-20] MEDS: TORSEMIDE 20 MG TAB PO SCH (09:00)
[2019-08-20] MEDS: BISOPROLOL FUMARATE 2.5 MG PO SCH ×2 (09:00→21:00)
[2019-08-20] MEDS: CEFTRIAXONE SODIUM 1 GM IV SCH (09:06)
[2019-08-20 11:00] VITALS: BP 114/56
[2019-08-20] MEDS: DEXTROSE 5 %-0.45 % NACL 1,000 ML IV SCH ×2 (12:11→15:44)
[2019-08-20] MEDS: KETOROLAC TROMETHAMINE 30MG/ML IV PRN (14:25)
[2019-08-20 16:00] VITALS: BP 113/60
--- NOTE | 2019-08-20 18:47 | NUR ---
DR. HUMMEL NOTIFIED ABOUT PT CONDITION PASSING GAS X2, BUT NO BOWEL MOVEMENT. STATES POSSIBLE SMALL BOWEL SERIES TOMORROW.
[2019-08-20 19:00] VITALS: BP 107/70
[2019-08-20] MEDS: SIMVASTATIN 20 MG TABLET PO SCH (21:00)
[2019-08-20 23:00] VITALS: BP 102/51
[2019-08-21 03:00] VITALS: BP 113/74
[2019-08-21] MEDS: METRONIDAZOLE 500MG/100ML BAG 100 ML IV SCH ×3 (05:57→21:14)
[2019-08-21] MEDS: LEVOTHYROXINE 100 MCG TABLET PO SCH (06:30)
[2019-08-21 06:37] LABS: MEAN CORPUSCULAR HEMOGLOBIN 29.5 pg (27.0-33.0); MEAN CORPUSCULAR HGB CONC 32.9 g/dL (32.0-36.0); MEAN CORPUSCULAR VOLUME 89.8 fL (79-99); PLATELET COUNT (AUTO) 163 K/uL (130-400); RED BLOOD CELL COUNT(AUTO) 5.01 MIL/uL (4.50-6.20); RED CELL DISTRIBUTION WIDTH 16.7 % (11.0-15.5); WHITE BLOOD COUNT (AUTO) 5.6 K/uL (4.8-10.8)
[2019-08-21 06:45] LABS: CREATININE 2.1 mg/dL (0.5-1.5); MAGNESIUM 2.4 mg/dL (1.80-2.40); POTASSIUM 4.5 mmol/L (3.5-5.1)
[2019-08-21] MEDS ORDERED: GLYCERIN ADULT SUPP.RECT RC PRN (06:45)
[2019-08-21 08:00] VITALS: BP 105/65
[2019-08-21] MEDS: TORSEMIDE 20 MG TAB PO SCH (09:00)
[2019-08-21] MEDS: BISOPROLOL FUMARATE 2.5 MG PO SCH ×2 (09:00→21:00)
[2019-08-21 11:00] VITALS: BP 105/66
[2019-08-21] MEDS: CEFTRIAXONE SODIUM 1 GM IV SCH (11:02)
[2019-08-21] MEDS: LISINOPRIL 2.5 MG TABLET PO SCH (11:02)
[2019-08-21] MEDS: ASPIRIN 81 MG EC TAB PO SCH (11:02)
[2019-08-21] MEDS: AMIODARONE HCL 200 MG TABLET PO SCH (11:02)
[2019-08-21] MEDS: SPIRONOLACTONE 25 MG TAB PO SCH (11:03)
[2019-08-21] MEDS: CLOPIDOGREL BISULFATE 75 MG TAB PO SCH (11:03)
[2019-08-21] MEDS: BISACODYL 10 MG SUPP.RECT RC PRN (11:11)
[2019-08-21] MEDS: KETOROLAC TROMETHAMINE 30MG/ML IV PRN ×2 (11:12→22:00)
[2019-08-21] MEDS: DEXTROSE 5 %-0.45 % NACL 1,000 ML IV SCH ×2 (11:17→11:44)
--- NOTE | 2019-08-21 15:30 | NUR ---
Patient reports having quickly rising from bed and hit his rt elbow on bedside rail, causing skin tear. Minimal sanguinous drainage to rt elbow, covered with tegaderm. Patient denies pain, stating, "my skin cuts very easily." Patient reminded that he takes antiplatelets and must be more careful as is at higher risk of bleeding and bruising. Patient verbalized understanding.
[2019-08-21 16:00] VITALS: BP 104/57
[2019-08-21 19:00] VITALS: BP 108/68
[2019-08-21] MEDS ORDERED: M.V.I. IV [ADULT] 10 ML in CLINIMIX E 5%-15% 2,000 ML IV SCH (20:45)
[2019-08-21] MEDS: SIMVASTATIN 20 MG TABLET PO SCH (21:00)
[2019-08-21 23:00] VITALS: BP 105/61
[2019-08-22] MEDS: DEXTROSE 5 %-0.45 % NACL 1,000 ML IV SCH ×4 (00:19→23:46)
[2019-08-22 03:00] VITALS: BP 107/66
[2019-08-22] MEDS: LEVOTHYROXINE 100 MCG TABLET PO SCH (06:12)
[2019-08-22] MEDS: METRONIDAZOLE 500MG/100ML BAG 100 ML IV SCH ×3 (06:13→22:06)
[2019-08-22 07:30] VITALS: BP 108/62
[2019-08-22] MEDS: CLOPIDOGREL BISULFATE 75 MG TAB PO SCH (09:00)
[2019-08-22] MEDS: BISOPROLOL FUMARATE 2.5 MG PO SCH ×2 (09:00→21:00)
[2019-08-22] MEDS: ASPIRIN 81 MG EC TAB PO SCH (09:00)
[2019-08-22] MEDS: AMIODARONE HCL 200 MG TABLET PO SCH (09:00)
[2019-08-22] MEDS: LISINOPRIL 2.5 MG TABLET PO SCH (09:00)
[2019-08-22] MEDS: SPIRONOLACTONE 25 MG TAB PO SCH (09:00)
[2019-08-22] MEDS: TORSEMIDE 20 MG TAB PO SCH (09:00)
[2019-08-22] MEDS: CEFTRIAXONE SODIUM 1 GM IV SCH (09:02)
[2019-08-22 09:39] LABS: ALBUMIN 3.3 g/dL (3.5-5.0); BILIRUBIN,TOTAL 0.5 mg/dL (0.2-1.0); CREATININE 2.1 mg/dL (0.5-1.5); MAGNESIUM 2.2 mg/dL (1.80-2.40); PHOSPHORUS 3.4 mg/dL (2.5-4.9); POTASSIUM 3.8 mmol/L (3.5-5.1); TOTAL PROTEIN, SERUM 6.5 g/dL (6.0-8.3)
[2019-08-22 11:00] VITALS: BP 109/56
--- NOTE | 2019-08-22 11:23 | NUR ---
TPN RECOMMENDATIONS Renal function is improving. Pt is tolerating TPN at this time. RD recommends to continue TPN at current rate and draw Lipid panel tonfranklin, RN notified. RD will re-asses pt tomorrow to possibly increase rate and add intra-lipids to TPN, RN notified.
[2019-08-22] MEDS: BISACODYL 10 MG SUPP.RECT RC PRN (12:00)
[2019-08-22 12:45] LABS: CHOLESTEROL 93 mg/dL (<200); HDL CHOLESTEROL 70 mg/dL (29-71); LDL DIRECT 42 mg/dL (0-99); TRIGLYCERIDES 76 mg/dL (30-200)
[2019-08-22 16:00] VITALS: BP 115/67
--- NOTE | 2019-08-22 16:00 | NUR ---
sm bowel series PA for surgeon rounds, orders exam but wont be able to get done till am. patient continues with NG tube with copious amount of green bile draining at low intermittent suction. informed PA of the 700+ at HS and for my shift the 400+ of emesis. continue to keep patient NPO as ordered.explained to patient and verbalizes understanding.
[2019-08-22] MEDS ORDERED: PHARMACY COMMUNICATION MISC SCH (16:15)
[2019-08-22] MEDS: KETOROLAC TROMETHAMINE 30MG/ML IV PRN ×2 (17:31→23:47)
[2019-08-22 20:00] VITALS: BP 107/70
[2019-08-22] MEDS: SIMVASTATIN 20 MG TABLET PO SCH (21:00)
[2019-08-22 23:44] VITALS: BP 98/62
[2019-08-23 03:54] VITALS: BP 98/56
[2019-08-23] MEDS: METRONIDAZOLE 500MG/100ML BAG 100 ML IV SCH ×3 (05:22→22:06)
[2019-08-23] MEDS: KETOROLAC TROMETHAMINE 30MG/ML IV PRN ×2 (05:23→17:37)
[2019-08-23] MEDS: LEVOTHYROXINE 100 MCG TABLET PO SCH (05:58)
--- NOTE | 2019-08-23 06:40 | NUR ---
RAFAL GARCIA ROUNDED: SEEN PT. WITH FF: ORDERS 1. CBC 2. BMP 3. HYPOKALEMIA PROTOCOL
[2019-08-23] MEDS ORDERED: POTASSIUM CHLORIDE 10MEQ/100ML 100 ML IV PRN (06:45)
[2019-08-23] MEDS ORDERED: LIDOCAINE HCL-MPF 1% 2ML VIAL IV PRN (06:45)
[2019-08-23] MEDS: ALBUTEROL SULFATE 0.083% 2.5 MG/3 ML INH IH PRN (07:14)
[2019-08-23 07:30] VITALS: BP 96/59
[2019-08-23] MEDS: BISOPROLOL FUMARATE 2.5 MG PO SCH ×2 (09:00→21:00)
[2019-08-23] MEDS: SPIRONOLACTONE 25 MG TAB PO SCH (09:00)
[2019-08-23] MEDS: AMIODARONE HCL 200 MG TABLET PO SCH (09:28)
[2019-08-23] MEDS: ASPIRIN 81 MG EC TAB PO SCH (09:29)
[2019-08-23] MEDS: TORSEMIDE 20 MG TAB PO SCH (09:29)
[2019-08-23] MEDS: LISINOPRIL 2.5 MG TABLET PO SCH (09:29)
[2019-08-23] MEDS: CEFTRIAXONE SODIUM 1 GM IV SCH (09:30)
[2019-08-23] MEDS: CLOPIDOGREL BISULFATE 75 MG TAB PO SCH (09:30)
[2019-08-23] MEDS ORDERED: DIATR MEGLU/DIATRIZOATE SODIUM 30 ML BOTTLE ONE (10:21)
[2019-08-23] MEDS: DEXTROSE 5 %-0.45 % NACL 1,000 ML IV SCH ×2 (13:44→22:20)
--- NOTE | 2019-08-23 13:55 | NUR ---
TPN RECOMMENDATIONS Lipid panel reviewed, okay to add 20% intralipids to TPN, RN was notified. Renal function reviewed, okay to increase TPN rate to 45ml/hr, RN notified. RD will continue to monitor and follow up, thank you.
[2019-08-23 16:00] VITALS: BP 109/70
--- NOTE | 2019-08-23 16:00 | NUR ---
INFORMED YOGESH DUBOIS FOR DR HUMMEL OF FINDINGS OF SMALL BOWEL SERIES, NO ANSWER MESSAGE LEFT, PENDING CALL BACK
[2019-08-23] MEDS ORDERED: M.V.I. IV [ADULT] 10 ML in CLINIMIX E 5%-15% 2,000 ML IV SCH (19:30)
[2019-08-23 20:24] VITALS: BP 91/48
[2019-08-23] MEDS: SIMVASTATIN 20 MG TABLET PO SCH (21:00)
[2019-08-24] VITALS (7 sets, daily range): BP systolic 94–112; BP diastolic 49–68
[2019-08-24] MEDS: LEVOTHYROXINE 100 MCG TABLET PO SCH (05:48)
[2019-08-24] MEDS: METRONIDAZOLE 500MG/100ML BAG 100 ML IV SCH ×3 (05:48→21:56)
[2019-08-24 06:11] LABS: BASOPHILS % (AUTO) 0.4 % (0.0-5.0); EOSINOPHILS % (AUTO) 3.2 % (0.0-8.0); HEMATOCRIT 45.2 % (42-54); LYMPHOCYTES % (AUTO) 20.8 % (21.0-51.0); MEAN CORPUSCULAR HEMOGLOBIN 28.3 pg (27.0-33.0); MEAN CORPUSCULAR HGB CONC 31.9 g/dL (32.0-36.0); MEAN CORPUSCULAR VOLUME 88.8 fL (79-99); MONOCYTES % (AUTO) 12.8 % (3.0-13.0); NEUTROPHILS % (AUTO) 62.2 % (40.0-77.0); PLATELET COUNT (AUTO) 183 K/uL (130-400); RED BLOOD CELL COUNT(AUTO) 5.09 MIL/uL (4.50-6.20); RED CELL DISTRIBUTION WIDTH 16.7 % (11.0-15.5); WHITE BLOOD COUNT (AUTO) 5.3 K/uL (4.8-10.8)
[2019-08-24 06:23] LABS: CREATININE 2.7 mg/dL (0.5-1.5); POTASSIUM 3.2 mmol/L (3.5-5.1)
[2019-08-24] MEDS: ALBUTEROL SULFATE 0.083% 2.5 MG/3 ML INH IH PRN ×2 (06:24→19:21)
[2019-08-24] MEDS: BISOPROLOL FUMARATE 2.5 MG PO SCH ×2 (09:00→21:00)
[2019-08-24] MEDS: LISINOPRIL 2.5 MG TABLET PO SCH (09:00)
[2019-08-24] MEDS: ASPIRIN 81 MG EC TAB PO SCH (10:27)
[2019-08-24] MEDS: CLOPIDOGREL BISULFATE 75 MG TAB PO SCH (10:28)
[2019-08-24] MEDS: TORSEMIDE 20 MG TAB PO SCH (10:28)
[2019-08-24] MEDS: CEFTRIAXONE SODIUM 1 GM IV SCH (10:29)
[2019-08-24] MEDS: AMIODARONE HCL 200 MG TABLET PO SCH (10:29)
[2019-08-24] MEDS: SPIRONOLACTONE 25 MG TAB PO SCH (10:29)
[2019-08-24] MEDS: DEXTROSE 5 %-0.45 % NACL 1,000 ML IV SCH ×2 (10:34→21:56)
[2019-08-24] MEDS: FAT EMULSIONS 20% 250ML 250 ML IV SCH (10:37)
--- NOTE | 2019-08-24 16:03 | NUR ---
Call from or and surgery schedule for 0800 on 08/25/19ese Martinez
[2019-08-24] MEDS: SIMVASTATIN 20 MG TABLET PO SCH (21:00)
[2019-08-24] MEDS: ONDANSETRON HCL 4 MG/2 ML VIAL IVP PRN (21:07)
[2019-08-24] MEDS ORDERED: M.V.I. IV [ADULT] 10 ML in CLINIMIX E 5%-15% 2,000 ML IV SCH (22:00)
[2019-08-25] VITALS (36 sets, daily range): BP systolic 68–137; BP diastolic 35–94
[2019-08-25] MEDS: KETOROLAC TROMETHAMINE 30MG/ML IV PRN (02:37)
[2019-08-25 04:14] LABS: BASOPHILS % (AUTO) 0.4 % (0.0-5.0); EOSINOPHILS % (AUTO) 3.1 % (0.0-8.0); HEMATOCRIT 41.8 % (42-54); LYMPHOCYTES % (AUTO) 16.7 % (21.0-51.0); MEAN CORPUSCULAR HEMOGLOBIN 29.2 pg (27.0-33.0); MEAN CORPUSCULAR VOLUME 88.4 fL (79-99); NEUTROPHILS % (AUTO) 64.2 % (40.0-77.0); PLATELET COUNT (AUTO) 167 K/uL (130-400); RED BLOOD CELL COUNT(AUTO) 4.73 MIL/uL (4.50-6.20); RED CELL DISTRIBUTION WIDTH 16.8 % (11.0-15.5); WHITE BLOOD COUNT (AUTO) 4.9 K/uL (4.8-10.8)
[2019-08-25 04:26] LABS: ALBUMIN 3.7 g/dL (3.5-5.0); BILIRUBIN,TOTAL 0.4 mg/dL (0.2-1.0); CREATININE 2.9 mg/dL (0.5-1.5)
[2019-08-25] MEDS: ONDANSETRON HCL 4 MG/2 ML VIAL IVP PRN ×2 (04:42→11:22)
[2019-08-25] MEDS: POTASSIUM CHLORIDE 20MEQ/100ML 100 ML IV PRN ×3 (05:07→11:56)
[2019-08-25] MEDS: DEXTROSE 5 %-0.45 % NACL 1,000 ML IV SCH ×3 (05:44→23:41)
[2019-08-25] MEDS: METRONIDAZOLE 500MG/100ML BAG 100 ML IV SCH (06:16)
[2019-08-25] MEDS: LEVOTHYROXINE 100 MCG TABLET PO SCH (06:19)
[2019-08-25] MEDS ORDERED: LACTATED RINGERS 1000ML 1,000 ML IV ONE (07:29)
[2019-08-25] MEDS ORDERED: KETAMINE 50MG/ML SYRINGE 50 MG/ML DISP.SYRIN IV ONE (08:23)
[2019-08-25] MEDS ORDERED: ROCURONIUM 10MG/1ML SYR 10 MG/ML ML ONE (08:24)
[2019-08-25] MEDS ORDERED: PROPOFOL 10 MG/ML 20ML VIAL IV ONE (08:24)
[2019-08-25] MEDS ORDERED: SUCCINYLCHOLINE CHLORIDE 20 MG/ML 10 ML VIAL ONE (08:24)
[2019-08-25] MEDS ORDERED: LIDOCAINE PF 2% 5ML ABBOJECT ONE (08:24)
[2019-08-25] MEDS ORDERED: FENTANYL CITRATE PF 50 MCG/1 ML 2ML VIAL ONE (08:25)
[2019-08-25] MEDS ORDERED: CEFAZOLIN SODIUM 1 GM VIAL ONE (08:59)
[2019-08-25] MEDS: CLOPIDOGREL BISULFATE 75 MG TAB PO SCH (09:00)
[2019-08-25] MEDS: AMIODARONE HCL 200 MG TABLET PO SCH (09:00)
[2019-08-25] MEDS: LISINOPRIL 2.5 MG TABLET PO SCH (09:00)
[2019-08-25] MEDS: SPIRONOLACTONE 25 MG TAB PO SCH (09:00)
[2019-08-25] MEDS: TORSEMIDE 20 MG TAB PO SCH (09:00)
[2019-08-25] MEDS: BISOPROLOL FUMARATE 2.5 MG PO SCH ×2 (09:00→21:00)
[2019-08-25] MEDS: ASPIRIN 81 MG EC TAB PO SCH (09:00)
[2019-08-25] MEDS ORDERED: NEOSTIGMINE 5MG/5ML SYR IV ONE (09:50)
[2019-08-25] MEDS ORDERED: GLYCOPYRROLATE 1 MG/5 ML SYRINGE ONE (09:50)
[2019-08-25] MEDS: FAT EMULSIONS 20% 250ML 250 ML IV SCH (10:00)
[2019-08-25] MEDS ORDERED: MORPHINE SULFATE 2 MG/ML 1ML SYG ONE (10:27)
[2019-08-25] MEDS ORDERED: MEPERIDINE-PF 25 MG/ML SYG ONE (11:00)
[2019-08-25] MEDS ORDERED: MORPHINE SULFATE 4 MG/1ML SYG IV PRN (12:15)
[2019-08-25] MEDS: CEFAZOLIN SODIUM 1 GM VIAL IVP SCH ×2 (13:00→20:12)
[2019-08-25] MEDS: KETOROLAC TROMETHAMINE 15MG/ML IM PRN (19:59)
[2019-08-25] MEDS: SIMVASTATIN 20 MG TABLET PO SCH (21:00)
[2019-08-26] VITALS (11 sets, daily range): BP systolic 80–107; BP diastolic 34–64
[2019-08-26] MEDS: LACTATED RINGERS 1000ML 1,000 ML IV SCH ×3 (01:00→10:33)
[2019-08-26 03:56] LABS: HEMATOCRIT 31.3 % (42-54); MEAN CORPUSCULAR HEMOGLOBIN 28.7 pg (27.0-33.0); MEAN CORPUSCULAR HGB CONC 32.6 g/dL (32.0-36.0); MEAN CORPUSCULAR VOLUME 88.2 fL (79-99); PLATELET COUNT (AUTO) 149 K/uL (130-400); RED BLOOD CELL COUNT(AUTO) 3.55 MIL/uL (4.50-6.20); RED CELL DISTRIBUTION WIDTH 17.1 % (11.0-15.5); WHITE BLOOD COUNT (AUTO) 10.9 K/uL (4.8-10.8)
[2019-08-26 04:21] LABS: BAND NEUTROPHILS % (MANUAL) 19 % (0-2); LYMPHOCYTES % (MANUAL) 3 % (22-44); MAN.DIFF COMMENT-IMPRESSION MANUAL DIFFERENTIAL; MONOCYTES % (MANUAL) 5 % (2-9); POTASSIUM 4.1 mmol/L (3.5-5.1); SEGMENTED NEUTROPHILS % 73 % (40-70)
[2019-08-26 04:22] LABS: PLATELET MORPHOLOGY COMMENT ADEQUATE
[2019-08-26] MEDS: LEVOTHYROXINE 100 MCG TABLET PO SCH (05:34)
[2019-08-26] MEDS: ALBUTEROL SULFATE 0.083% 2.5 MG/3 ML INH IH PRN ×2 (06:57→19:31)
[2019-08-26] MEDS ORDERED: SODIUM CHLORIDE 0.9% 500ML 500 ML IV SCH (07:00)
[2019-08-26] MEDS ORDERED: AMIODARONE HCL 150 MG in DEXTROSE 5%-WATER 100 ML IV SCH ×2 (07:15→07:18)
[2019-08-26] MEDS ORDERED: AMIODARONE HCL 900 MG in DEXTROSE 5%-WATER 500 ML IV SCH ×4 (07:15)
[2019-08-26] MEDS ORDERED: AMIODARONE HCL 450 MG in DEXTROSE 5%-WATER 250 ML IV SCH (07:30)
[2019-08-26] MEDS: SPIRONOLACTONE 25 MG TAB PO SCH (09:00)
[2019-08-26] MEDS ORDERED: FAT EMULSIONS 20% 250ML 250 ML IV SCH ×2 (09:00→10:00)
[2019-08-26] MEDS: CLOPIDOGREL BISULFATE 75 MG TAB PO SCH (09:00)
[2019-08-26] MEDS: AMIODARONE HCL 200 MG TABLET PO SCH (09:00)
[2019-08-26] MEDS: TORSEMIDE 20 MG TAB PO SCH (09:00)
[2019-08-26] MEDS: BISOPROLOL FUMARATE 2.5 MG PO SCH ×2 (09:00→21:00)
[2019-08-26] MEDS: LISINOPRIL 2.5 MG TABLET PO SCH (09:00)
[2019-08-26] MEDS: ASPIRIN 81 MG EC TAB PO SCH (09:00)
[2019-08-26] MEDS: ONDANSETRON HCL 4 MG/2 ML VIAL IVP PRN ×2 (09:37→15:42)
[2019-08-26] MEDS: KETOROLAC TROMETHAMINE 15MG/ML IM PRN ×2 (09:46→15:42)
--- NOTE | 2019-08-26 10:20 | NUR ---
RD FOLLOW UP S/p surgery. Meds and labs reviewed. Tolerating TPN at 45ml/hr + 20% intralipids. Continue current TPN recommendations Will continue to monitor and follow up, thank you.
[2019-08-26] MEDS: DEXTROSE 5 %-0.45 % NACL 1,000 ML IV SCH ×2 (11:44→15:06)
[2019-08-26] MEDS: M.V.I. IV [ADULT] 10 ML in CLINIMIX E 5%-15% 2,000 ML IV SCH (12:19)
[2019-08-26] MEDS: SIMVASTATIN 20 MG TABLET PO SCH (20:58)
[2019-08-27] MEDS: KETOROLAC TROMETHAMINE 15MG/ML IM PRN ×3 (01:03→16:51)
[2019-08-27 03:55] VITALS: BP 89/42
[2019-08-27 04:11] LABS: BASOPHILS % (AUTO) 0.2 % (0.0-5.0); EOSINOPHILS % (AUTO) 0.5 % (0.0-8.0); HEMATOCRIT 27.3 % (42-54); LYMPHOCYTES % (AUTO) 4.7 % (21.0-51.0); MEAN CORPUSCULAR HEMOGLOBIN 29.1 pg (27.0-33.0); MEAN CORPUSCULAR VOLUME 88.3 fL (79-99); MONOCYTES % (AUTO) 11.2 % (3.0-13.0); NEUTROPHILS % (AUTO) 82.7 % (40.0-77.0); PLATELET COUNT (AUTO) 144 K/uL (130-400); RED BLOOD CELL COUNT(AUTO) 3.09 MIL/uL (4.50-6.20); RED CELL DISTRIBUTION WIDTH 17.7 % (11.0-15.5); WHITE BLOOD COUNT (AUTO) 10.2 K/uL (4.8-10.8)
[2019-08-27] MEDS: DEXTROSE 5 %-0.45 % NACL 1,000 ML IV SCH ×2 (04:27→17:12)
[2019-08-27 04:32] LABS: ALBUMIN 2.3 g/dL (3.5-5.0); ASPARTATE AMINOTRANSFERASE 21 U/L (10-37); BILIRUBIN,TOTAL 0.7 mg/dL (0.2-1.0); CARBON DIOXIDE 30 mmol/L (21-32); CHLORIDE 101 mmol/L (101-111); GLOMERULAR FILTR. RATE CALC 22 mL/min (>60); GLUCOSE,RANDOM 107 mg/dL (70-105); POTASSIUM 4.2 mmol/L (3.5-5.1); SODIUM SERUM 135 mmol/L (136-145); TOTAL PROTEIN, SERUM 5.5 g/dL (6.0-8.3); UREA NITROGEN, BLOOD 71 mg/dL (7-18)
[2019-08-27 04:33] LABS: ALANINE AMINOTRANSFERASE < 6 U/L (12-78)
[2019-08-27] MEDS: LEVOTHYROXINE 100 MCG TABLET PO SCH (06:02)
[2019-08-27] MEDS: ALBUTEROL SULFATE 0.083% 2.5 MG/3 ML INH IH PRN ×2 (06:42→18:20)
[2019-08-27] MEDS: LISINOPRIL 2.5 MG TABLET PO SCH (07:26)
[2019-08-27] MEDS: AMIODARONE HCL 200 MG TABLET PO SCH (07:28)
[2019-08-27] MEDS: SPIRONOLACTONE 25 MG TAB PO SCH (07:28)
[2019-08-27] MEDS: BISOPROLOL FUMARATE 2.5 MG PO SCH ×2 (07:29→20:14)
[2019-08-27] MEDS: TORSEMIDE 20 MG TAB PO SCH (07:29)
--- NOTE | 2019-08-27 08:00 | NUR ---
ASSESSMENT PT IS AAOX3 RESTING IN BED. DENIES CP DENIES SOB DENIES NV. ABD INCISION DRESSING IS CLEAN DRY AND INTACT. AM MEDS GIVEN, NGT CLAMPED FOR 1 HR. CALL LIGHT WITHIN REACH.
[2019-08-27 08:02] VITALS: BP 99/49
[2019-08-27 11:40] VITALS: BP 92/48
[2019-08-27] MEDS: M.V.I. IV [ADULT] 10 ML in CLINIMIX E 5%-15% 2,000 ML IV SCH (12:21)
--- NOTE | 2019-08-27 13:00 | NUR ---
DR ESTEPHANIE FAJARDO SAW PATIENT ORDERS RECEIVED NGT CLAMPED. FAJARDO CATH REMOVED CATH TIP INTACT, DTV IN 8HRS PT VOICES UNDERSTANDING.
--- NOTE | 2019-08-27 13:01 | NUR ---
DR ESTEPHANIE FAJARDO REMOVED ABD DRESSING AND LEFT OPEN TO AIR.
[2019-08-27 15:27] VITALS: BP 87/45
--- NOTE | 2019-08-27 16:38 | NUR ---
UP TO RESTROOM WITH ASSISTANCE BM ACHIEVED, SOFT BROWN STOOL NOTED. AND PATIENT VOIDED URINE. NO COMPLAINTS
--- NOTE | 2019-08-27 16:39 | NUR ---
ASSISTED TO CHAIR NO COMPLAINTS TOLERATED WELL.
[2019-08-27 20:05] VITALS: BP 98/50
[2019-08-27] MEDS: SIMVASTATIN 20 MG TABLET PO SCH (20:14)
[2019-08-28] VITALS (7 sets, daily range): BP systolic 89–110; BP diastolic 42–58
[2019-08-28] MEDS: KETOROLAC TROMETHAMINE 15MG/ML IV PRN ×2 (02:04→21:09)
[2019-08-28 03:56] LABS: BASOPHILS % (AUTO) 0.1 % (0.0-5.0); EOSINOPHILS % (AUTO) 1.5 % (0.0-8.0); HEMATOCRIT 25.7 % (42-54); LYMPHOCYTES % (AUTO) 3.9 % (21.0-51.0); MEAN CORPUSCULAR HEMOGLOBIN 29.6 pg (27.0-33.0); MEAN CORPUSCULAR HGB CONC 32.7 g/dL (32.0-36.0); MEAN CORPUSCULAR VOLUME 90.5 fL (79-99); MONOCYTES % (AUTO) 8.2 % (3.0-13.0); NEUTROPHILS % (AUTO) 85.4 % (40.0-77.0); PLATELET COUNT (AUTO) 150 K/uL (130-400); RED BLOOD CELL COUNT(AUTO) 2.84 MIL/uL (4.50-6.20); RED CELL DISTRIBUTION WIDTH 17.9 % (11.0-15.5); WHITE BLOOD COUNT (AUTO) 10.1 K/uL (4.8-10.8)
[2019-08-28 04:06] LABS: CREATININE 2.9 mg/dL (0.5-1.5); POTASSIUM 3.8 mmol/L (3.5-5.1)
[2019-08-28] MEDS: LEVOTHYROXINE 100 MCG TABLET PO SCH (05:25)
[2019-08-28] MEDS: ALBUTEROL SULFATE 0.083% 2.5 MG/3 ML INH IH PRN ×2 (07:06→18:14)
[2019-08-28] MEDS: AMIODARONE HCL 200 MG TABLET PO SCH (07:23)
[2019-08-28] MEDS: TORSEMIDE 20 MG TAB PO SCH (07:23)
[2019-08-28] MEDS: SPIRONOLACTONE 25 MG TAB PO SCH (07:23)
[2019-08-28] MEDS: LISINOPRIL 2.5 MG TABLET PO SCH (07:24)
[2019-08-28] MEDS: BISOPROLOL FUMARATE 2.5 MG PO SCH ×2 (07:24→21:00)
[2019-08-28] MEDS: ASPIRIN 81MG TAB.CHEW PO SCH (07:50)
--- NOTE | 2019-08-28 08:00 | NUR ---
ASSESSMENT PT IS AAOX3 RESTING IN BED. DENIES CP DENIES SOB DENIES NV. MID LINE ABD INCISION IS OPEN TO AIR, LITZY IN PLACE. NO DEHISCENCE OR EVISCERATION NOTED. ABD IS SOFT AND NON TENDER. DENIES PAIN TO ABD. CALL LIGHT WITHIN REACH.
[2019-08-28] MEDS: CLOPIDOGREL BISULFATE 75 MG TAB PO SCH (09:40)
--- NOTE | 2019-08-28 13:31 | NUR ---
DR ESTEPHANIE FAJARDO ORDERS RECEIVED NGT DC, CATH TIP INTACT. NO COMPLAINTS.
[2019-08-28] MEDS: SIMVASTATIN 20 MG TABLET PO SCH (20:57)
[2019-08-29] VITALS (7 sets, daily range): BP systolic 92–108; BP diastolic 52–61
[2019-08-29] MEDS: LEVOTHYROXINE 100 MCG TABLET PO SCH (05:31)
[2019-08-29] MEDS: ALBUTEROL SULFATE 0.083% 2.5 MG/3 ML INH IH PRN ×2 (07:02→18:42)
[2019-08-29] MEDS: SPIRONOLACTONE 25 MG TAB PO SCH (08:59)
[2019-08-29] MEDS: CLOPIDOGREL BISULFATE 75 MG TAB PO SCH (08:59)
[2019-08-29] MEDS: TORSEMIDE 20 MG TAB PO SCH (09:00)
[2019-08-29] MEDS: AMIODARONE HCL 200 MG TABLET PO SCH (09:00)
[2019-08-29] MEDS: ASPIRIN 81MG TAB.CHEW PO SCH (09:00)
[2019-08-29] MEDS: BISOPROLOL FUMARATE 2.5 MG PO SCH ×2 (09:00→20:46)
[2019-08-29] MEDS: LISINOPRIL 2.5 MG TABLET PO SCH (09:00)
[2019-08-29] MEDS: KETOROLAC TROMETHAMINE 15MG/ML IV PRN (09:07)
--- NOTE | 2019-08-29 12:50 | NUR ---
SILVINO GOETZ IN ROOM SPEAKING WITH PT. RE:PLAN OF CARE. QUESTIONS ANSWERED BY Ethan
--- NOTE | 2019-08-29 14:57 | NUR ---
RD FOLLOW UP Postop Ileus. Pt diet advanced to Clear Liquid diet. No report of GI distress, PO intake at 75%. Recommend to gradually increase as tolerated to goal of GI Soft bland, as medically feasible. Pt continues with TPN at this time. RD to continue to monitor. Addendum: 08/29/19 at [address] Amended: Links added.
[2019-08-29] MEDS ORDERED: HEMORRHOIDAL OINTMENT 57 GM CREAM.GM. RC PRN (20:15)
[2019-08-29] MEDS: SIMVASTATIN 20 MG TABLET PO SCH (20:45)
[2019-08-29] MEDS: HYDROCODONE/ACETAMINOPHEN 5/325 MG TAB PO PRN (20:46)
[2019-08-30 04:00] VITALS: BP 98/53
[2019-08-30] MEDS: LEVOTHYROXINE 100 MCG TABLET PO SCH (06:26)
[2019-08-30] MEDS: ALBUTEROL SULFATE 0.083% 2.5 MG/3 ML INH IH PRN ×2 (06:47→18:58)
[2019-08-30 07:28] VITALS: BP 94/47
[2019-08-30] MEDS: BISOPROLOL FUMARATE 2.5 MG PO SCH ×2 (09:00→20:23)
[2019-08-30] MEDS: LISINOPRIL 2.5 MG TABLET PO SCH (09:00)
[2019-08-30] MEDS ORDERED: CLOPIDOGREL BISULFATE 75 MG TAB ONE (09:33)
[2019-08-30] MEDS: SPIRONOLACTONE 25 MG TAB PO SCH (09:44)
[2019-08-30] MEDS: AMIODARONE HCL 200 MG TABLET PO SCH (09:44)
[2019-08-30] MEDS: TORSEMIDE 20 MG TAB PO SCH (09:44)
[2019-08-30] MEDS: ASPIRIN 81MG TAB.CHEW PO SCH (09:45)
[2019-08-30] MEDS: CLOPIDOGREL BISULFATE 75 MG TAB PO SCH (09:45)
[2019-08-30] MEDS: HYDROCODONE/ACETAMINOPHEN 5/325 MG TAB PO PRN ×2 (09:46→18:15)
[2019-08-30 11:32] VITALS: BP 96/56
[2019-08-30 15:20] VITALS: BP 98/57
[2019-08-30] MEDS: ONDANSETRON HCL 4 MG/2 ML VIAL IVP PRN (18:08)
[2019-08-30 19:37] VITALS: BP 95/49
[2019-08-30] MEDS: SIMVASTATIN 20 MG TABLET PO SCH (20:21)
[2019-08-30 22:35] VITALS: BP 107/62
--- NOTE | 2019-08-30 22:35 | NUR ---
Nursing Note Report Received from Saloni RN at 2214 from room 205 Pt arrived to room at 2235. Pt settled into room.
[2019-08-31 03:00] VITALS: BP 103/50
[2019-08-31] MEDS: LEVOTHYROXINE 100 MCG TABLET PO SCH (06:13)
[2019-08-31] MEDS: HYDROCODONE/ACETAMINOPHEN 5/325 MG TAB PO PRN ×2 (06:17→20:20)
[2019-08-31] MEDS: ONDANSETRON HCL 4 MG/2 ML VIAL IVP PRN ×3 (06:17→20:20)
[2019-08-31] MEDS: ALBUTEROL SULFATE 0.083% 2.5 MG/3 ML INH IH PRN ×2 (06:47→18:41)
[2019-08-31 07:30] VITALS: BP 98/56
[2019-08-31] MEDS: BISOPROLOL FUMARATE 2.5 MG PO SCH ×2 (09:00→21:00)
[2019-08-31] MEDS: CLOPIDOGREL BISULFATE 75 MG TAB PO SCH ×2 (09:00→18:47)
--- NOTE | 2019-08-31 10:00 | NUR ---
PT HAS A PICC LINE RT UPPER ARM, PLACE OF CHG BATH. NOTICE APPLICATION ON THE DOOR,
[2019-08-31 11:00] VITALS: BP 101/42
[2019-08-31] MEDS: TORSEMIDE 20 MG TAB PO SCH (11:56)
[2019-08-31] MEDS: AMIODARONE HCL 200 MG TABLET PO SCH (11:56)
[2019-08-31] MEDS: ASPIRIN 81MG TAB.CHEW PO SCH (11:57)
[2019-08-31] MEDS: SPIRONOLACTONE 25 MG TAB PO SCH (11:57)
[2019-08-31] MEDS: LISINOPRIL 2.5 MG TABLET PO SCH (11:58)
--- NOTE | 2019-08-31 12:51 | NUR ---
PT ATE HIS DIET HEART HEALTHY ;AND HAD A LG EMESIS , WILL CHANGE HIS DIET TO FULL AND GIVEN HIM SOME NAUSEA . MEDICATION
--- NOTE | 2019-08-31 13:05 | NUR ---
ZORFAN 4 MG IV GIVEN FOR NAUSEA .
[2019-08-31 16:10] VITALS: BP 94/64
[2019-08-31 19:41] VITALS: BP 101/56
[2019-08-31] MEDS: SIMVASTATIN 20 MG TABLET PO SCH (20:20)
[2019-08-31 23:29] VITALS: BP 94/47
[2019-09-01 03:50] VITALS: BP 91/46
[2019-09-01 05:29] LABS: BASOPHILS % (AUTO) 0.2 % (0.0-5.0); EOSINOPHILS % (AUTO) 5.1 % (0.0-8.0); HEMATOCRIT 26.3 % (42-54); LYMPHOCYTES % (AUTO) 8.3 % (21.0-51.0); MEAN CORPUSCULAR HEMOGLOBIN 29.5 pg (27.0-33.0); MEAN CORPUSCULAR HGB CONC 31.9 g/dL (32.0-36.0); MEAN CORPUSCULAR VOLUME 92.3 fL (79-99); MONOCYTES % (AUTO) 11.1 % (3.0-13.0); NEUTROPHILS % (AUTO) 73.6 % (40.0-77.0); PLATELET COUNT (AUTO) 241 K/uL (130-400); RED BLOOD CELL COUNT(AUTO) 2.85 MIL/uL (4.50-6.20); RED CELL DISTRIBUTION WIDTH 17.6 % (11.0-15.5); WHITE BLOOD COUNT (AUTO) 6.1 K/uL (4.8-10.8)
[2019-09-01 05:51] LABS: CREATININE 1.9 mg/dL (0.5-1.5); POTASSIUM 4.1 mmol/L (3.5-5.1)
[2019-09-01] MEDS: LEVOTHYROXINE 100 MCG TABLET PO SCH (06:14)
[2019-09-01] MEDS: BISACODYL 10 MG SUPP.RECT RC PRN (06:16)
[2019-09-01] MEDS: ALBUTEROL SULFATE 0.083% 2.5 MG/3 ML INH IH PRN ×2 (06:39→18:58)
[2019-09-01 07:30] VITALS: BP 101/68
[2019-09-01] MEDS: BISOPROLOL FUMARATE 2.5 MG PO SCH ×2 (09:00→21:00)
[2019-09-01] MEDS ORDERED: CLOPIDOGREL BISULFATE 75 MG TAB ONE (09:53)
[2019-09-01] MEDS: SPIRONOLACTONE 25 MG TAB PO SCH (10:14)
[2019-09-01] MEDS: ASPIRIN 81MG TAB.CHEW PO SCH (10:14)
[2019-09-01] MEDS: TORSEMIDE 20 MG TAB PO SCH (10:14)
[2019-09-01] MEDS: HYDROCODONE/ACETAMINOPHEN 5/325 MG TAB PO PRN ×2 (10:15→20:55)
[2019-09-01] MEDS: AMIODARONE HCL 200 MG TABLET PO SCH (10:15)
[2019-09-01] MEDS: LISINOPRIL 2.5 MG TABLET PO SCH (10:15)
--- NOTE | 2019-09-01 10:30 | NUR ---
YOGESH LongHERE FOR DR HUMMEL UPDATE PT .DIET INTAKE AND HAVING SOME NAUSEA YESTERDAY. , WITH DR. EDWARDS FOR Efe CHING
--- NOTE | 2019-09-01 10:34 | NUR ---
KOLBY FOLLOW UP Notification for Caloric Intake assessment received. Calorie Count x 3 days initiated. Poor PO intake as of 08/31/19. Diet advanced to Heart Healthy, Soft/Bladen this AM. Recommend Ensure BID. RD to continue to monitor. Addendum: 09/01/19 at [address] Amended: Links added.
[2019-09-01 11:00] VITALS: BP 104/53
[2019-09-01 16:00] VITALS: BP 109/56
--- NOTE | 2019-09-01 17:30 | NUR ---
PT SITTING UP IN THE CHAIR, TAKING HIS DIET SLOWLY, AND TOLERATE IT FAIR, DENIES ANY NAUSEA
[2019-09-01 20:00] VITALS: BP 103/51
[2019-09-01] MEDS: SIMVASTATIN 20 MG TABLET PO SCH (20:51)
[2019-09-02] VITALS (7 sets, daily range): BP systolic 88–139; BP diastolic 46–65
[2019-09-02] MEDS: LEVOTHYROXINE 100 MCG TABLET PO SCH (05:11)
[2019-09-02] MEDS: HYDROCODONE/ACETAMINOPHEN 5/325 MG TAB PO PRN ×2 (05:11→09:23)
[2019-09-02] MEDS ORDERED: MAGNESIUM 2GM PREMIX 50ML 50 ML IV SCH (06:15)
[2019-09-02] MEDS: ALBUTEROL SULFATE 0.083% 2.5 MG/3 ML INH IH PRN ×2 (06:47→19:39)
[2019-09-02] MEDS: TORSEMIDE 20 MG TAB PO SCH (09:00)
[2019-09-02] MEDS: LISINOPRIL 2.5 MG TABLET PO SCH (09:00)
[2019-09-02] MEDS: CLOPIDOGREL BISULFATE 75 MG TAB PO SCH (09:00)
[2019-09-02] MEDS: BISOPROLOL FUMARATE 2.5 MG PO SCH ×2 (09:00→21:00)
[2019-09-02] MEDS: SPIRONOLACTONE 25 MG TAB PO SCH (09:00)
[2019-09-02] MEDS: AMIODARONE HCL 200 MG TABLET PO SCH (09:22)
[2019-09-02] MEDS: ASPIRIN 81MG TAB.CHEW PO SCH (09:22)
--- NOTE | 2019-09-02 10:57 | NUR ---
RD UPDATE Pt downgraded to Full Liquid Diet order. Pt not yet tolerating Solid foods. Recommend Mechanical soft, finely chopped, soft [place] diet order when medically feasible. Spoke with Pt's via phone and requesting foods like oatmeal, Mashed potatoes, soups, Puddings, Jello. Pt ate Breakfast, 100% this AM. RD to update food preferences with Kitchen. RD to continue to monitor. Please notify as additional nutrition concerns arise. Thank you.
[2019-09-02] MEDS ORDERED: DOCUSATE SODIUM 100 MG CAP PO SCH (11:45)
[2019-09-02] MEDS: ONDANSETRON HCL 4 MG/2 ML VIAL IVP PRN (12:38)
[2019-09-02] MEDS: DOCUSATE SODIUM 100 MG CAP PO SCH (21:04)
[2019-09-02] MEDS: SIMVASTATIN 20 MG TABLET PO SCH (21:04)
[2019-09-03] VITALS (7 sets, daily range): BP systolic 95–108; BP diastolic 50–64
[2019-09-03 04:54] LABS: HEMATOCRIT 26.9 % (42-54); MEAN CORPUSCULAR HEMOGLOBIN 29.8 pg (27.0-33.0); MEAN CORPUSCULAR HGB CONC 32.7 g/dL (32.0-36.0); MEAN CORPUSCULAR VOLUME 91.2 fL (79-99); PLATELET COUNT (AUTO) 287 K/uL (130-400); RED BLOOD CELL COUNT(AUTO) 2.95 MIL/uL (4.50-6.20); RED CELL DISTRIBUTION WIDTH 18.1 % (11.0-15.5); WHITE BLOOD COUNT (AUTO) 7.3 K/uL (4.8-10.8)
[2019-09-03 05:09] LABS: CREATININE 1.8 mg/dL (0.5-1.5); POTASSIUM 3.9 mmol/L (3.5-5.1)
[2019-09-03] MEDS: ALBUTEROL SULFATE 0.083% 2.5 MG/3 ML INH IH PRN ×2 (06:31→18:08)
[2019-09-03] MEDS: LEVOTHYROXINE 100 MCG TABLET PO SCH (06:45)
[2019-09-03] MEDS: LISINOPRIL 2.5 MG TABLET PO SCH (09:00)
[2019-09-03] MEDS: BISOPROLOL FUMARATE 2.5 MG PO SCH ×2 (09:00→21:00)
[2019-09-03] MEDS: AMIODARONE HCL 200 MG TABLET PO SCH (10:59)
[2019-09-03] MEDS: SPIRONOLACTONE 25 MG TAB PO SCH (10:59)
[2019-09-03] MEDS: TORSEMIDE 20 MG TAB PO SCH (10:59)
[2019-09-03] MEDS: DOCUSATE SODIUM 100 MG CAP PO SCH ×2 (10:59→21:03)
[2019-09-03] MEDS: ASPIRIN 81MG TAB.CHEW PO SCH (10:59)
[2019-09-03] MEDS ORDERED: CLOPIDOGREL BISULFATE 75 MG TAB ONE (11:11)
[2019-09-03] MEDS: CLOPIDOGREL BISULFATE 75 MG TAB PO SCH (11:15)
--- NOTE | 2019-09-03 13:00 | NUR ---
SILVINO ORDOÑEZ PA FOR [facility] HERE TO SEE ANOTHER PATIENT. INFORMED THAT DR. IRENE HAD SEEN PATIENT. DR. IRENE RESUMED PATIENTS PLAVIX 75MG PO BID ON 08/28/2019 AND PATIENT DID START MEDICATION, BUT BY EMAR IT APPEARS PATIENT HAS NOT RECEIVED PLAVIX FOR 4 DAYS. NO FURTHER ORDER.
[2019-09-03] MEDS: SIMVASTATIN 20 MG TABLET PO SCH (21:03)
[2019-09-04 04:01] VITALS: BP_SYST 106; BP_SYST 158; BP_DIAS 53; BP_DIAS 83
[2019-09-04 05:19] VITALS: BP 105/56
[2019-09-04] MEDS: LEVOTHYROXINE 100 MCG TABLET PO SCH (06:17)
[2019-09-04] MEDS: ALBUTEROL SULFATE 0.083% 2.5 MG/3 ML INH IH PRN (06:45)
[2019-09-04 08:43] VITALS: BP 110/49
[2019-09-04] MEDS: LISINOPRIL 2.5 MG TABLET PO SCH (09:00)
[2019-09-04] MEDS: BISOPROLOL FUMARATE 2.5 MG PO SCH (09:00)
[2019-09-04] MEDS ORDERED: CLOPIDOGREL BISULFATE 75 MG TAB ONE (09:25)
[2019-09-04] MEDS: AMIODARONE HCL 200 MG TABLET PO SCH (10:43)
[2019-09-04] MEDS: CLOPIDOGREL BISULFATE 75 MG TAB PO SCH (10:43)
[2019-09-04] MEDS: DOCUSATE SODIUM 100 MG CAP PO SCH (10:43)
[2019-09-04] MEDS: ASPIRIN 81MG TAB.CHEW PO SCH (10:44)
[2019-09-04] MEDS: SPIRONOLACTONE 25 MG TAB PO SCH (10:44)
--- NOTE | 2019-09-04 11:31 | NUR ---
DISCHARGE DISCHARGE TEACHING PROVIDED TO PATIENT REGARDING HOME CARE MONITORING AFTER SURGERY AND INTERVENTIONS TO PREVENT COMPLICATIONS, ABDOMINAL INCISION SITE CARE AND MONITORING FOR COMPLICATIONS, MONITORING PICC LINE REMOVAL SITE FOR COMPLICATIONS, CONTINUE SOFT DIET AT HOME. INFORMED THAT WE WERE UNABLE TO SCHEDULE ONE WEEK FOLLOW UP APPOINTMENT WITH DR. HUMMEL BECAUSE OFFICE IS CLOSED TODAY. INSTRUCTED ON NEXT DAY TO CALL DR. PERAZA OFFICE TO SCHEDULE ONE WEEK F/U APPOINTMENT, PROVIDED DR. HUMMEL'S OFFICE PHONE NUMBER AND ADDRESS. PATIENT VERBALIZED UNDERSTANDING OF DISCHARGE TEACHING. DR. HUMMEL ARRIVED TO SEE PATIENT AND REMINDED PATIENT TO SEE HIM IN ONE WEEK. MD ALSO TOLD PATIENT TO TAKE [id number] DULCOLAX OR METAMUCIL TO PREVENT CONSTIPATION. AT TIME OF DISCHARGE, ABDOMINAL INCISION APPROXIMATED, 28 LITZY IN POSITION, NO ACTIVE DRAINAGE NOTED. PATIENT REPORTS NO PAIN OR DISCOMFORTS, AWAITING SPOUSE TO PICK HIM UP. STERILE TECHNIQUE USED TO REMOVED RIGHT UPPER ARM PICC LINE. PATIENT PLACED IN SUPINE POSITION. NO RESISTANCE NOTED UPON PICC LINE REMOVAL, PICC LINE INTACT. DIRECT PRESSURE PLACED OVER SITE, NO ACTIVE BLEEDING NOTED AND PLACED OCCLUSIVE DRESSING. INSTRUCTED TO MONITOR SITE FOR S/S OF COMPLICATIONS AND OKAY TO REMOVE DRESSING IN 24-72 HOURS IF NO BLEEDING AND SITE HEALING. PATIENT VERBALIZED UNDERSTANDING OF THIS.
== END 2019-09-04 12:10 | disposition home or self-care (01) | DRG 330 ==
LOC: EDH 23:39 → EDHIP 08-15 03:26 → OBSVTOIN 08-15 03:26 → 4BH 08-15 08:02 → 2AH 08-26 09:50 → 3DH 08-30 22:24
PROVIDERS: ADMIT Internal Medicine; ATTEND Internal Medicine
PROC: 0D9670Z Drainage of Stomach with Drainage Device, Via Natural or Artificial Opening (ICD-10-PCS; 2019-08-20)
PROC: 0DTB0ZZ Resection of Ileum, Open Approach (ICD-10-PCS; 2019-08-25)
PROC: 0DTA0ZZ Resection of Jejunum, Open Approach (ICD-10-PCS; principal; 2019-08-25 08:25)
PROC: 0DNA0ZZ Release Jejunum, Open Approach (ICD-10-PCS; 2019-08-25 08:25)
DX: K56.609 Unspecified intestinal obstruction, unspecified as to partial versus complete obstruction (principal); I50.22 Chronic systolic (congestive) heart failure; I13.0 Hypertensive heart and chronic kidney disease with heart failure and stage 1 through stage 4 chronic kidney disease, or unspecified chronic kidney disease; N18.4 Chronic kidney disease, stage 4 (severe); I47.2 Ventricular tachycardia; J44.9 Chronic obstructive pulmonary disease, unspecified; I25.5 Ischemic cardiomyopathy; I25.10 Atherosclerotic heart disease of native coronary artery without angina pectoris; K56.7 Ileus, unspecified; E03.9 Hypothyroidism, unspecified; E78.5 Hyperlipidemia, unspecified; G47.33 Obstructive sleep apnea (adult) (pediatric); I34.0 Nonrheumatic mitral (valve) insufficiency; I71.4 Abdominal aortic aneurysm, without rupture; I25.2 Old myocardial infarction; Z79.02 Long term (current) use of antithrombotics/antiplatelets; Z95.0 Presence of cardiac pacemaker; Z95.1 Presence of aortocoronary bypass graft; Z95.5 Presence of coronary angioplasty implant and graft
CPT/HCPCS: 36415; 71045; 74018; 74176; 74250; 80048; 80053; 80061; 83690; 83735; 84100; 84132; 84484; 85025; 85027; 85610; 85730; 88307; 93005; 94640; 94664; 97039; A4344; C1894; G0378; J0282; J0330; J0690; J0696; J1885; J2001; J2175; J2270; J2405; J2704; J2710; J3010; J3480; J3490; J7030; J7040; J7042; J7060; J7120; Q9963